=== PATIENT | female | born 1980 | race Caucasian/White ===

== ENCOUNTER 2024-11-19 13:35 | Outpatient (CLI) | payer OTHER, BC, SELFPAY ==
--- NOTE | ~2024-11-19 | MM_ITS ---
EXAMINATION: MM screening toshia BI w leonard HISTORY: Screening TECHNIQUE: Craniocaudal and mediolateral oblique 3-D tomosynthesis images were obtained and synthetic 2-D images were generated. CAD analysis was submitted and interpreted. COMPARISON: No prior mammogram is available for comparison at this institution. BREAST PARENCHYMAL COMPOSITION: Not dense: There are scattered areas of fibroglandular density. FINDINGS: There is no evidence of suspicious mass, calcification, or architectural distortion to sugg est malignancy in either breast. There has been no suspicious interval change. IMPRESSION: 1. No mammographic evidence of malignancy. 2. Recommend routine screening mammography in one year. BI-RADS Category 1: Negative Reviewed, dictated and finalized at location B.
--- OUTSIDE RECORDS SUMMARY | 2024-11-19 14:38 | XMS_ITS | Continuity of Care Document ---
Author Organization [facility] Address [address] [place] [address] Phone Care Team Providers Care Refrigerator Repair Technician Name Role Phone Emmanuel Cantu MD Unavailable Unavailable Advance Directives Directive Yes / No Effective Date File Name No Information Encounters Encounter Description Practice Location Reason(s) For Visit Diagnoses Date Provider Providers Copied on Encounter [facility], [address], [place], [place], [id number], [place] tel:[phone] [facility] No Information [address] Alondra Benitez. [address], [address], [place], [place], [address], [place]. tel:[phone] Referring Provider: Yaya Juarez MD, [address], [place], [address]. tel:[phone] Family History Family Member Type Diagnosis Age At Onset No Information Payers Payer name Insurance type Covered alliance party ID Authoriza tion(s) No Information Social History Type Description Quantity Date Captured Comments Sex Female Smoking Status No Information Chief Complaint And Reason For Visit No Information Reason For Referral Reason For Referral No Information History Of Present Illness Encounter Date Complaint History Of Prese nt Illness No Information Functional Status Date Functional Assessmen t No Information Instructions Date Instruction Additional Infor mation No Information Assessments Type Assessment Date No Information Patient Care Teams Name Effective Dates (start - stop) Status Members No Information
--- OUTSIDE RECORDS SUMMARY | 2024-11-19 14:38 | XMS_ITS | Clinical Summary ---
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 Gender Identity Not on file Sexual Orientation Not on file Plan of Treatment Health Maintenance Due Date Last Done Comments Hepatitis C Virus (HCV) Screening 1982 TdaP Immunization 1982 Hepatitis B Immunization (1 of 3 - 19+ 3-dose series) 2001 Pap Smear 2003 Cervical Cancer Screening (CCS) 2012 HPV/Cotest 2012 Discussion re Starting/Frequ ency of Mammograms 2022 Influenza Immunization (#1) 2024 SARS-COV-2 Immunization ( season) 2024 Respiratory Syncytial Virus (RSV) Immunization (Adult) (1 - 1-dose 75+ series) 2057 Meningococcal Immunization (ACWY) Aged Out No longer eligible based on patient's age to complete this topic Pneumococcal Immunization Combined Aged Out No longer eligible based on patient's age to complete this topic Rotavirus Immunization Aged Out No lo nger eligible based on patient's age to complete this topic
--- OUTSIDE RECORDS SUMMARY | 2024-11-19 14:38 | XMS_ITS | Continuity of Care Document ---
Author Organization [facility] Address [address] [place] [address] [place] [address] Phone Care Team Providers Care Metal Mover Name Role Phone Otto Berry MD Unavailable Unavailable Allergies, Adverse Reactions, Alerts Substance Reaction Status Criticality ADHESIVE BANDAGE Active No Informat ion egg Active No Information Medications Medication Instructions Dosage Effective Dates (start - stop) Status Comments Ritalin 10 mg tablet take 1.5 Tablet by oral route 2 times every day 15 MG - Active Procedures Procedure Date OFFICE/OUTPATIENT VISIT, EST OFFICE/OUTPATIENT VISIT, EST PREV VISIT, EST, AGE 18-39 OFFICE/OUTPATIENT VISIT, EST OFFICE/OUTPATIENT VISIT, EST PREV VISIT, NEW, AGE 18-39 Advance Directives Directive Yes / No Effective Date File Name No Information Encounters Encounter Description Practice Location Reason(s) For Visit Diagnoses Date Provider Providers Copied on Encounter [facility], [address] [place], [place], [address], tel:[phone] [facility] No Information 1 Jamal Menjivar. [address] [place], [place], [address] , [place]. tel:[phone] [facility], [address] [place], [address], [place] tel:[phone] [facility] No Information 1 Jamal Salguero [address] [facility] [place], [address] , [place]. tel:[phone] OFFICE/OUTPA TIENT VISIT, EST [facility], [address], [place], [place], [address], [place] tel:[phone] [facility] ADD (chief complaint) varicose vein1 (chief complaint) Attention and concentration deficitVaricose veins of left lower extremity with pain Fe-0 1 Jamal Salguero [address], [place], [place], [address] , [place]. tel:[phone] OFFICE/OUTPA TIENT VISIT, EST [facility], [address], [place], [place], [address], [place] tel:[phone] [facility] ADD (chief complaint) varicose veins1 (chief complaint) Attention and concentration deficitVaricose veins of left lower extremity with pain Feb-3 0- 0 Jamal Menjivar. [address], [place], [place], [address] , [place]. tel:[phone] PREV VISIT, EST, AGE 18-39 [facility], [address], [place], [place], [address], [place] tel:[phone] [facility] Physical (chief complaint) Encounter for general adult medical exam w abnormal findingsAttention and concentration deficitIrritant contact dermatitis due to plants, except food 0 Jamal Menjivar. [address], [place], [place], [address] , [place]. tel:[phone] OFFICE/OUTPA TIENT VISIT, EST [facility], [address], [place], [place], [address], [place] tel:[phone] [facility] Hive1 (chief complaint) abd pain1 (chief complaint) ear1 (chief complaint) LeukocytosisHematur iaAbdominal painUrticariaHyperg lycemia Tre- 5-201 9 Jamal Salguero [address], [address], [place], [place], [address] , [place]. tel:[phone] Referring Provider: Elicia Rhodes [address], [place], [place], [address]. tel:[phone] PREV VISIT, NEW, AGE 18-39 [facility], [address] [place], [place], [address], tel:[phone] [facility] PHysical (chief complaint) Encntr for general adult medical exam w/o abnormal findings 9 Jamal Menjivar. [address] [place], [place], [address] , [place]. tel:[phone] Family History Family Member Type Diagnosis Age At Onset Brother Problem (finding) Alive and well Father Problem (finding) Alive and well Mother Problem (finding) Diabetes mellitus type 2 Payers Payer name Insurance type Covered democrat ID Authoriza tion(s) No Information Social History Type Description Quantity Date Captured Comments Alcohol Use Details Unknown Caffeine Use Details Unknown Tobacco Use Status No Information Smoking Status No Information Sex Female Chief Complaint And Reason For Visit No Information Plan Of Treatment Date Type Action Status Goal Special diet education compl eted Goal Tobacco cessation counseling completed Goal Tobacco cessation counseling completed Goal Special diet education compl eted History Of Present Illness Encounter Date Complaint History Of Prese nt Illness ADD Patient has ADD. Patient has inattentive type. Patient feels scatterbrained. Patient feel poor focus and difficulty completing tasks. Patient states that ritalin 15 mg BID is helping with symptoms. Patient feels more focused. Pt feels more energy. Patient denies any headache, dry mouth, headache, chest pain. Patient denies any appetite loss. varicose vein1 Pt has occasiona l painful left varicose veins Pt denies any leg redness or swelling Pt has not made julian with vein doctor yet ADD Patient has ADD. Patient has inattentive type. Patient feels scatterbrained. Patient feel poor focus and difficulty completing tasks. Patient states that ritalin is helping with symptoms. Patient feels more focused. Pt feels more energy. Patient denies any headache, dry mouth, headache, chest pain. Patient denies any appetite loss. pt states that current dose of 10 mg does not work well anymore and she has been taking 15 mg BID which worked much better. varicose veins1 Pt has history o f varicose veins. Pt states that she has history of vein stripping left leg 10 years ago. Pt states that the veins recurred on left thigh area recently and is causing pain Pt denies any numbness or tingling Pt denies any edema Pt denies any redness or warmth Pt denies any calf pain Physical Pt needs annual physical ,pt c/o diffuse poison IV type of rash for 2-3 days .Pt did work in her yard just prior to the onset of the rash pt notices itchy and spreading rash all over body, especially around arm or neck. Pt notices mild clear drainage .Pt tried OTC meds but is not helping. Pt denies any fever, chill, sick contact, difficulty with swallowing or any breathing or wheezing. Pt has history of ADD. . Patient has inattentive type. Patient feels scatterbrained. Patient feel poor focus and difficulty completing tasks. Patient states that she used to take ritalin back in high school and later years which did help with symptoms. 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 Pt denies any pain or itching Hive1 Pt c/o acute ons et of itchy hive from head to toe since last Monday. Pt denies any trouble with breathing or swallowing Pt denies any fever. Pt went to urgent care on last Monday and she received depo medrol shot. Pt is on benadryl and also pepcid. Pt states that the rash goes away and reappear throughout the day and seems go away with benadryl. Pt is on oral prednisone currently Pt states that she feels the rash keeps coming back unless she takes benadryl Pt denies any trouble with breathing or swallowing or fever Pt denies any sick contact or recent traveling nurse did have some shrimp the night before which she usually does not eat abd pain1 Pt c/o acute low pelvic pain yesterday and she went to ER and she had Ct which showed free fluid in pelvis wit possible inflammatroy cervicx change and ? ovarain cyst rutpure Pt had negative trichomonas Pt denies any risk for STD. Pt denies any vaginal discahrge. Pt currentluy dong ok,. Pt denies any pain now, pt has julian with CONSTRUCTION ENGINEER tomorrow PHysical Pt needs annual physical. Pt states that both ear lobe started to swell since 3 days ago with visible blisters with clear drainage. Pt denies any issue with inner ear, Pt notices a small blisters two days ago on left thigh which popped with clear fluid but keep feeling up. Pt denies any mild pain. pt denies any itching. Pt denies any sick contact. Pt did not expose to any plant or anything else Pt did not eat any new food. Pt denies any fever, trouble with breathing or swallowing. Pt denies any itching Instructions Date Instruction Additional Infor mation Weight management Related to Gopi kocytosis Special diet education Related t o Body mass index (BMI) 29.0-29.9, adult Increase activity. Related to En cntr for general adult medical exam w/o abnormal findings Perform monthly self breast examinations. Related to Encntr for general adult medical exam w/o abnormal findings Special diet education Related t o Body mass index (BMI) 28.0-28.9, adult Assessments Type Assessment Date No Information
--- OUTSIDE RECORDS SUMMARY | 2024-11-19 14:38 | XMS_ITS | Data Portability ---
Author Organization [facility] and, [facility]) Address [address] [place] [address] Care Team Providers Care Building Surveyor Name Role Phone ARETHA CREWS Primary Care Provider Assessment Encounter Date Assessment Date Assessment LastModified by Organization Details LastModified Time 11/08/2021 11/08/2021 41 y/o with chronic venous insufficiency and CEAP grade 3 on the right and 3 on the left. VCSS score is 10. I am concerned that the symptoms may progress over time. Patients symptoms persist despite a trial of properly fitted gradient compression stockings for10 years. Patient has also tried mild exercise, avoidance of prolonged immobility and periodic elevation of legs for10 years. However, the symptoms still persist. Given the symptoms, I recommend lower extremity venous ultrasound I will discuss further treatment plans upon reviewing her ultrasound results. I spent a total of 45 minutes with the patient. The time was spent reviewing the chart discussing with patient and/or family and forming a treatment plan [email or web address] Not available 11/08/2021 16:40:59 11/19/2021 11/19/2021 41 y/o with chronic venous insufficiency and CEAP grade 3 on the right and 3 on the left. I am concerned that the symptoms may progress over time. Venous ultrasound shows evidence of venous insufficiency bilaterally. She has already tried compression therapy, but her symptoms still persist. Given the symptoms, I recommend venous closure . The risks, benefits and alternatives were discussed with the patient. The patient states that they understand and wish to proceed. Treatment planning is underway. 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 Lab None record ed. Referral None record ed. Procedures None record ed. Surgeries None record ed. Imaging None record ed. Medication Orders None record ed. Patient TargetsNo targets recorded. Patient InstructionsNo instructions recorded. Reason for Referral None Reported. Results Created Date Observation Date Name Description Value Unit Range Abnormal Flag Note LastModifiedBy Organization Detail LastModifiedTime 11/28/19 22 11/18/2021 US, doppl er, venou s No observ ation record ed. [email or web address] Not Available 2021 11:04:28 Result Notes None recorded. Procedures Surgical History Date Name Laterality Status Provider Name and Address Organization Details Recorded Time 022 OA RF vein closure completed Halima JARRETT - [facility] and 02/02/2022 17:08:33 022 OALEVenousUSreflux completed Steff JARRETT - [facility] 11/19/2021 11:35:47 021 completed Halima JARRETT - [facility] and 11/08/2021 15:38:52 010 Vein Stripping completed Halima JARRETT - [facility] and 11/08/2021 15:38:52 Imaging Results Imaging Date Name Status LastModified by Organiz ation Details LastModified Time 11/18/2021 US, doppler, venous completed [email or web address] Information not available 11/29/2021 11:04:28 Procedure Notes None recorded. Medical Equipment None Reported. Allergies Allergen ID Allergen Name Allergen Category Reaction Reaction Severity Criticality Documentation Date Start Date Code Code System Note Provider Name and Address Organization Details Recorded Time 4622 egg extract food,medi cation Not available Not available Not available 11/08/2021 20976 15 RxNorm LUIZA Daugherty - [facility] 15:38:52 Medications Name Sig Start Date Stop Date Status Note LastModified by Organization Details LastModified Time methylphenidate 10 mg tablet active Not Available Not Available Not Available dextroamphetamin e-amphetamine 15 mg tablet TAKE 1 TABLET BY MOUTH TWICE A DAY AT LEAST 4-6 HOURS APART active Not Available Not Available No t Available Vitals Date Recorded Heart rate Systolic blood pressure Diastolic blood pressure Provider Name and Address Organization Details Last Updated DateTime 02/02/2022 57 /min 117 mm[Hg] 74 mm[Hg] TERESAOwen LANE [facility] 02/02/2022 09:53:24 Social History Question Answer Notes LastModified by Organizat ion Details LastModified Time Tobacco Smoking Status Current Some Day Smoker Halima Teja belle, [facility] and 11/08/2021 15:38:52 What Is Your Level Of Alcohol Consumption? Moderate Information not available 11/08/2021 Which Illicit Or Recreational Drugs Have You Used? Marijuana Information not available 11/08/2021 What Is Your Occupation? Sales Information not available 11/08/2021 How Much Tobacco Do You Smoke? 1 PPW Information not available 11/08/2021 How Many Years Have You Smoked Tobacco? 10 Information not available 11/08/2021 Sex: Unknown Functional Status None recorded. Mental Status None recorded. Family History Relationship Description Onset Age of this Age Resolved Age Notes LastModified by Organization Details LastModified Time Mother Diabetes mellitus pt. added direct ly (10/27) [email or web address] Not available 10/27/2021 09:57:51 Mother Hypertensive disorder pt. added direct ly (10/27) [email or web address] Not available 10/27/2021 09:58:11 Mother Heart disease pt. added direct ly (10/27) [email or web address] Not available 10/27/2021 09:58:19 Father Diabetes mellitus pt. added direct ly (10/27) [email or web address] Not available 10/27/2021 09:57:51 Father Hypertensive disorder pt. added direct ly (10/27) [email or web address] Not available 10/27/2021 09:58:11 Father Malignant neoplastic disease pt. added direct ly (10/27) [email or web address] Not available 10/27/2021 09:58:25 Sister Diabetes mellitus pt. added direct ly (10/27) [email or web address] Not available 10/27/2021 09:57:51 Sister Hypertensive disorder pt. added direct ly (10/27) [email or web address] Not available 10/27/2021 09:58:11 Medical History Condition Response Varicose Veins Y Gynecological History Statement/Question Response N Light 10/15/2021 Sexually Active? Y N N Duration of Flow (days) 5 03/07/2021 N Current Control Method IUD Obstetrics History GPAL:G 0 P 0 0 0 0 Past Encounters Encounter ID Performer Location Encounter Start Date Encounter Closed Date Diagnosis/Indication Diagnosis SNOMED-CT Code Diagnosis ICD10 Code Diagnosis Note [id number] Halima Lezama [facility] [address] [facility], [facility] [address],[facility] [address] ( [place] [address] 11/08/2021 14:54:41 11/08/2021 16:50:55 Varicose veins of lower extremity 73734405 I83.893 Primary ve nous insufficiency of leg 192379646 I87.2 Edema of l ower extremity 750025407 R60.0 [id number] Steff CORTEZOUN [place] [address] [facility] [place] [address] 11/19/2021 10:53:39 11/19/2021 11:43:56 Varicose veins of lower extremity 83568177 I83.893 [id number] Billy James MD [facility] ( [place] ) [address] [place] [address] [place] [address] 11/19/2021 11:36:59 11/19/2021 12:03:28 Varicose veins of lower extremity 45708121 I83.893 [id number] Halima Lezama [facility] ( [place] ) [address] [facility] [place] [address] 02/02/2022 09:31:28 02/02/2022 16:19:41 Varicose veins of lower extremity 93758610 I83.893 Health Concerns Section Related Observation LastModified by Organization Detai ls LastModified Time None Recorded Concern Status LastModified by Organization Details LastModified Time None Recorded Advance Directives Directive None Recorded Payers Encounter Date Sequence Insurance Name Policy Number Policy Hernandez Covered Member ID Hernandez Member ID Guarantor Name 11/08/2021 1 [employer] (PPO) Anne-Marie Phelps [id number] Anne-Marie Phelps 11/19/2021 1 [employer] - [employer] (O) [id number] Anne-Marie Phelps [id number] Anne-Marie Phelps 11/19/2021 1 [employer] - [employer] (PPO) [id number] Anne-Marie Phelps [id number] Anne-Marie Phelps 02/02/2022 1 [employer] - [employer] ([facility]) [id number] Anne-Marie Phelps [id number] Anne-Marie Phelps 02/02/2022 2 [employer] [employer] [place] [id number] Odell Carrillo Mattie [id number] Anne-Marie Keatingson Notes Date Note Type Note Provider Name and Address Organization Details Recorded Time 2 text/html Varicose Vein or Venous insufficiencyReported bypatient.[facility] Quality:aching;burning;thr obbing;constant; worsening Associated Symptoms:swelling;itching; heaviness;throbbing;charac ter: cramping Severity:moderate;constant Onset:gradual onset; 10+ years Context:edema; previous ; compression stockings (for how long?) 10 years Alleviating Factors:elevation; compression Aggravating Factors:weight bearing; previous childbirth; edema Previous Surgery:varicose vein stripping, date: 10 years agoNotes:She reports having vein stripping about 10 years ago with initial improvements but she has had worsening symptoms over the past couple of years. As related to {{his her*}} venous disease, patient reports {{burning aching swelling itching cramping aching, burning, swelling, itching#}} {{and burning and aching and swelling and itching and cramping*}} {{during activity after prolonged standing during activity and prolonged standing*}}.Patient {{endorses* denies}} prior use of compression stockings.{{Patients symptoms persist despite a trial of properly fitted gradient compression stockings*}}for {{1 2 3 4 5 6 7 8 9 10* 11 12}} {{months weeks years* scott h week year}} {{Patient has also tried mild exercise, avoidance of prolonged immobility and periodic elevation of legs*}} for{{1 2 3 4 5 6 7 8 9 10* 11}} {{month months week weeks year years* month months w [place] weeks year years*}}. {{However, the symptoms still persist.*}} {{Analgesic medication has been tried, but the symptoms persist and are lifestyle limiting*}}Patients work requires {{prolonged standing prolonged sitting constant activity*}} which has to be modified because of persistent {{pain* swelling discomfor t}} while {{standing sitting in motion performing various work activities*}} LUIZA Daugherty [facility] and 11/08/2021 16:42:20 2 text/html Varicose Vein or Venous insufficiencyReported bypatient.[facility] Quality:aching;burning;thr obbing;constant; worsening Associated Symptoms:swelling;itching; heaviness;throbbing;charac ter: cramping Severity:moderate;constant Onset:gradual onset; 10+ years Context:edema; previous ; compression stockings (for how long?) 10 years Alleviating Factors:elevation; compression Aggravating Factors:weight bearing; previous childbirth; edema Previous Surgery:varicose vein stripping, date: 10 years agoNotes:She reports having vein stripping about 10 years ago with initial improvements but she has had worsening symptoms over the past couple of years. As related to {{his her*}} venous disease, patient reports {{burning aching swelling itching cramping aching, burning, swelling, itching#}} {{and burning and aching and swelling and itching and cramping*}} {{during activity after prolonged standing during activity and prolonged standing*}}.Patient {{endorses* denies}} prior use of compression stockings.{{Patients symptoms persist despite a trial of properly fitted gradient compression stockings*}}for {{1 2 3 4 5 6 7 8 9 10* 11 12}} {{months weeks years* scott h week year}} {{Patient has also tried mild exercise, avoidance of prolonged immobility and periodic elevation of legs*}} for{{1 2 3 4 5 6 7 8 9 10* 11}} {{month months week weeks year years* month months w [place] weeks year years*}}. {{However, the symptoms still persist.*}} {{Analgesic medication has been tried, but the symptoms persist and are lifestyle limiting*}}Patients work requires {{prolonged standing prolonged sitting constant activity*}} which has to be modified because of persistent {{pain* swelling discomfor t}} while {{standing sitting in motion performing various work activities*}} [place] [address], [address], [facility] 11/19/2021 11:56:07 OBGyn Episode No OBEpisode recorded.
== END 2024-11-19 13:36 | disposition home or self-care (01) ==
LOC: CHSIMG 13:38
PROVIDERS: PCP Nurse Practitioner Family; Visit Provider Nurse Practitioner Obstetrics & Gynecology
DX: Z12.31 Encounter for screening mammogram for malignant neoplasm of breast (principal)
CPT/HCPCS: 77063; 77067